=== PATIENT | male | born 1990 | race Caucasian/White ===

== ENCOUNTER 2018-08-15 19:41 | Emergency (ER) | payer SELFPAY ==
[2018-08-15] MEDS: LORAZEPAM 1 MG TAB PO (22:15)
[2018-08-15] MEDS: IBUPROFEN 600 MG TAB PO (22:16)
== END 2018-08-15 23:53 | disposition home or self-care (01) ==
LOC: FTE 23:53
DX: R07.81 Pleurodynia (principal); R51 Headache
CPT/HCPCS: 70450; 71046; 71100; 72125; 73562; 99284-25